=== PATIENT | male | born 1995 | race Caucasian/White ===

== ENCOUNTER 2017-01-11 15:36 | Emergency (ER) | payer SELFPAY ==
[2017-01-11] MEDS ORDERED: Ketorolac 60 MG/2 ML SDV IM ONE (16:03)
--- NOTE | 2017-01-11 16:12 | EDM.PDOC ---
ED HPI GENERAL MEDICAL PROBLEM - General Chief Complaint: Back Pain or Injury Stated Complaint: BACK PAIN Time Seen by Provider: 01/11/17 15:55 Source of Information: Reports: Patient, RN History Limitations: Reports: No Limitations - History of Present Illness INITIAL COMMENTS - FREE TEXT/NARRATIVE: 21 yo male moved here 2 weeks ago from [place] for employment. Has no local doctor. Has a hx of mild, chronic low back pain not felt to be due to a prior injury. Has never been seen for this low back pain. Now since last night his pain has progressed to the point where he called in sick to work today. Is taking ibuprofen without relief. No bowel or bladder dysfunction and no lower extremity weakness or numbness. Onset: Unknown/Unsure Duration: Chronic, Getting Worse Location: Reports: Back (low back) Quality: Reports: Ache Severity: Moderate Improves with: Reports: Rest Worsens with: Reports: Movement Context: Reports: Other (unknown) Associated Symptoms: Reports: No Other Symptoms Treatments LADDER OPERATOR: Reports: NSAIDS Lower Back Pain Score (Numeric/FACES): 4 - Related Data Allergies Allergy/AdvReac Type Severity Reaction Status Date / Time No Known Allergies Allergy Verified 01/11/17 15:52 Home Meds: Home Meds Ibuprofen 200 mg PO ASDIRECTED 01/11/17 [History] Past Medical History Musculoskeletal History: Reports: Back Pain, Chronic Psychiatric History: Reports: Autism, Other (See Below) Other Psychiatric History: asbergers. socialphobia - Infectious Disease History Infectious Disease History: Reports: Chicken Pox - Past Surgical History Other Musculoskeletal Surgeries/Procedures:: tibia fracture Social & Family History - Tobacco Use Smoking Status *Q: Light Tobacco Smoker Years of Tobacco use: 10 Packs/Tins Daily: 0.3 - Caffeine Use Caffeine Use: Reports: Coffee, Energy Drinks, Soda - Recreational Drug Use Recreational Drug Use: No ED ROS GENERAL - Review of Systems Review Of Systems: See Below Constitutional: Reports: No Symptoms HEENT: Reports: No Symptoms Respiratory: Reports: No Symptoms Cardiovascular: Reports: No Symptoms GI/Abdominal: Reports: No Symptoms : Reports: No Symptoms Musculoskeletal: Reports: Back Pain Skin: Reports: No Symptoms Neurological: Reports: No Symptoms ED EXAM,LOWER BACK PAIN/INJURY - Physical Exam Exam: See Below Exam Limited By: No Limitations General Appearance: Alert, WD/WN, No Apparent Distress Eye Exam: Bilateral Eye: Normal Inspection Ears: Normal External Exam, Normal Canal, Hearing Grossly Normal, Normal TMs Nose: Normal Inspection, Normal Mucosa, No Blood Throat/Mouth: Normal Inspection, Normal Lips, Normal Oropharynx, Normal Voice, No Airway Compromise Head: Atraumatic, Normocephalic Neck: Normal Inspection, Supple, Non-Tender Respiratory/Chest: No Respiratory Distress, Lungs Clear, Normal Breath Sounds, No Accessory Muscle Use Cardiovascular: Regular Rate, Rhythm, No Edema GI/Abdominal: Normal Bowel Sounds, Soft, Non-Tender, No Distention Back Exam: Normal Inspection, Decreased Range of Motion, Vertebral Tenderness ( lumbar spine at beltline). No: CVA Tenderness (R), CVA Tenderness (L), Paraspinal Tenderness Extremities: Normal Inspection, Normal Range of Motion, Non-Tender, No Pedal Edema Neurological: Alert, Normal Mood/Affect, CN II-XII Intact, No Motor/Sensory Deficits, Oriented x 3 Psychiatric: Normal Affect, Normal Mood Skin Exam: Warm, Dry, Intact, Normal Color, No Rash Lymphatic: No Adenopathy Course - Vital Signs Last Recorded V/S: Last Vital Signs Temp 36.2 C 01/11/17 15:54 Pulse 64 01/11/17 15:54 Resp 16 01/11/17 15:54 BP 142/71 H 01/11/17 15:54 Pulse Ox 96 01/11/17 15:54 - Orders/Labs/Meds Orders: Active Orders 24 hr Category Date Time Status Lumbar Spine 2 or 3V [CR] Stat Exams 01/11/17 16:02 Ordered Meds: Medications Discontinued Medications Generic Name Dose Route Start Last Admin Trade Name Santi PRN Reason Stop Dose Admin Ketorolac Tromethamine 60 mg 01/11/17 16:03 01/11/17 16:10 Toradol IM 01/11/17 16:04 60 mg ONETIME ONE Administration - Radiology Interpretation Free Text/Narrative:: lumbar spine [id number] Departure - Departure Time of Disposition: 16:45 Disposition: Home, Self-Care 01 Condition: Fair Clinical Impression: Acute exacerbation of chronic low back pain - Discharge Information Referrals: PCP,None [Primary Care Provider] - Forms: ED Department Discharge - My Orders Last 24 Hours: My Active Orders 01/11/17 16:02 Lumbar Spine 2 or 3V [CR] Stat - Assessment/Plan Last 24 Hours: My Active Orders 01/11/17 16:02 Lumbar Spine 2 or 3V [CR] Stat
--- NOTE | 2017-01-12 08:29 | CR ---
Lumbar Spine 2 or 3V INDICATION: pain, no acute injury COMPARISON: None FINDINGS: 3 views. 5 lumbar-type vertebra. No compression deformities or subluxations. No disc space narrowing. IMPRESSION: Negative study.
== END 2017-01-11 16:57 | disposition home or self-care (01) ==
LOC: JP.ED 15:36
DX: M54.5 Low back pain (principal); G89.29 Other chronic pain; F17.210 Nicotine dependence, cigarettes, uncomplicated
CPT/HCPCS: 72100; 96372; 99284; J1885; 99283

== ENCOUNTER 2017-08-27 20:21 | Emergency (ER) | payer SELFPAY ==
[2017-08-27] MEDS ORDERED: Ketorolac 60 MG/2 ML SDV IM ONE (21:08)
--- NOTE | 2017-08-27 21:12 | EDM.PDOC ---
<Gill Coleman N - Last Filed: 08/27/17 21:32> ED HPI GENERAL MEDICAL PROBLEM - General Chief Complaint: General Stated Complaint: TOOTH PAIN Time Seen by Provider: 08/27/17 20:45 - History of Present Illness INITIAL COMMENTS - FREE TEXT/NARRATIVE: Paul is an otherwise healthy 22-year-old male who presents with complaints of dental pain secondary to dental decay of teeth 1 and 17. He states the pain began five days ago, and has progressively worsened. He has been taking BC aspirin powder 845 mg PO about 8 times per day with some relief, although he developed some associated abdominal pain this morning. States that he made a dental appointment, but cancelled it as he does not enjoy going to the dentist. He does not seek regular dental care, and his last appointment was about 5 years ago. Denies dysphagia, fevers, chills, or other associated symptoms. - Related Data Allergies Allergy/AdvReac Type Severity Reaction Status Date / Time No Known Allergies Allergy Verified 08/27/17 20:34 Home Meds: Home Meds Aspirin/Caffeine [Bc Powder Packet] 1 pack PO Q8HR PRN 08/27/17 [History] ED ROS GENERAL - Review of Systems Review Of Systems: See Below Constitutional: Reports: No Symptoms. Denies: Fever, Chills, Malaise, Fatigue, Decreased Appetite HEENT: Reports: Dental Pain. Denies: Throat Pain, Throat Swelling Respiratory: Reports: No Symptoms. Denies: Shortness of Breath Cardiovascular: Reports: No Symptoms. Denies: Chest Pain Endocrine: Reports: No Symptoms GI/Abdominal: Reports: No Symptoms (Transient episode this morning), Abdominal Pain. Denies: Diarrhea, Decreased Appetite, Nausea, Vomiting : Reports: No Symptoms Musculoskeletal: Reports: No Symptoms Skin: Reports: No Symptoms Neurological: Reports: No Symptoms Psychiatric: Reports: No Symptoms Hematologic/Lymphatic: Reports: No Symptoms Immunologic: Reports: No Symptoms ED EXAM, GENERAL - Physical Exam Exam: See Below Free Text/Narrative:: This is a pleasant 22-year-old male who appears to be in obvious discomfort, clutching at both sides of his jaw. He is alert and converses appropriately. Oral examination reveals multiple dental caries and decay in teeth 23-25, with a fracture on tooth 1 and significant decay in tooth 17. No edema, bleeding, or gingivitis observed. No drainage or abscess appreciated. Exam Limited By: No Limitations General Appearance: Alert, WD/WN, Mild Distress Ears: Normal External Exam, Normal Canal, Other (TM obscured by cerumen) Nose: Normal Inspection Throat/Mouth: Normal Lips, Normal Gums, Normal Oropharynx, Normal Voice, No Airway Compromise, Other (Noticeable crack of 1st tooth and significant dental berny and decay on 17th tooth. Dental caries also observed on teeth 23-25.) Head: Atraumatic Neck: Normal Inspection, Supple, Non-Tender. No: Lymphadenopathy (R), Lymphadenopathy (L) Respiratory/Chest: No Respiratory Distress, Lungs Clear, Normal Breath Sounds Cardiovascular: Regular Rate, Rhythm, No Gallop, No Murmur, No Rub GI/Abdominal: Normal Bowel Sounds, Soft, Non-Tender Neurological: Alert, Oriented, Normal Cognition, No Motor/Sensory Deficits Psychiatric: Normal Affect, Normal Mood Skin Exam: Warm, Dry, Intact, Normal Color, No Rash Lymphatic: No Adenopathy Course - Vital Signs Last Recorded V/S: Last Vital Signs Temp 35.6 C 08/27/17 20:35 Pulse 105 H 08/27/17 20:35 Resp 18 08/27/17 20:35 BP 180/93 H 08/27/17 20:35 Pulse Ox 97 08/27/17 20:35 - Orders/Labs/Meds Meds: Medications Discontinued Medications Generic Name Dose Route Start Last Admin Trade Name Santi PRN Reason Stop Dose Admin Clindamycin HCl 300 mg 08/27/17 21:52 08/27/17 22:02 Cleocin PO 08/27/17 21:53 300 mg ONETIME ONE Administration Diphenhydramine HCl 50 mg 08/27/17 21:52 08/27/17 22:00 Benadryl PO 08/27/17 21:53 50 mg ONETIME ONE Administration Ketorolac Tromethamine 60 mg 08/27/17 21:08 08/27/17 21:16 Toradol IM 08/27/17 21:09 60 mg ONETIME ONE Administration Pantoprazole Sodium 40 mg 08/27/17 21:21 08/27/17 21:30 Protonix PO 08/27/17 21:22 40 mg DAILY ONE Administration Departure - Departure Disposition: Home, Self-Care 01 Clinical Impression: Dental abscess, Dental caries extending into dentin - Discharge Information Instructions: Dental Abscess Referrals: PCP,None [Primary Care Provider] - Forms: ED Department Discharge Additional Instructions: You have been evaluated and treated for dental abscess. You were given toradol 60mg IM and protonix by mouth for your pain and stomach acid. Take clindamycin 300mg by mouth four times a day for infection (this would be 2 pills, four times a day). Ibuprofen 800mg by mouth three times a day for pain as needed. You can also take acetaminophen 1000mg by mouth three times a day as needed for pain. Take omeprazole 20mg by mouth twice per day for stomach acid build up and protection with fpc use of NSAIDs. Stop use of asa as this can cause significant irritation to your stomach. You can use ice to your face for pain. Follow up with Dental for further care. Return for worsening, issues or concerns. <Amena Levy - Last Filed: 08/27/17 22:45> ED HPI GENERAL MEDICAL PROBLEM - General Source of Information: Reports: Patient, Family History Limitations: Reports: No Limitations Tooth/Teeth Pain Score (Numeric/FACES): 5 Past Medical History Musculoskeletal History: Reports: Back Pain, Chronic Psychiatric History: Reports: Autism, Other (See Below) Other Psychiatric History: asbergers. socialphobia - Infectious Disease History Infectious Disease History: Reports: Chicken Pox - Past Surgical History Other Musculoskeletal Surgeries/Procedures:: tibia fracture Social & Family History - Family History Family Medical History: Noncontributory - Tobacco Use Smoking Status *Q: Current Every Day Smoker Years of Tobacco use: 3 Packs/Tins Daily: 0.2 - Caffeine Use Caffeine Use: Reports: None - Recreational Drug Use Recreational Drug Use: Yes Recreational Drug Type: Reports: Marijuana/Hashish Recreational Drug Use Frequency: Socially Departure - Departure Time of Disposition: 21:33 Condition: Good - Discharge Information *PRESCRIPTION DRUG MONITORING PROGRAM REVIEWED*: Yes *COPY OF PRESCRIPTION DRUG MONITORING REPORT IN PATIENT YANIRA: Not Applicable - Assessment/Plan Plan: Patient evaluated and treated for dental abscess. He given toradol 60mg IM and protonix by mouth for your pain and stomach acid as well as first dose of clindamycin 300mg PO and benadryl to help him rest tonight. Take clindamycin 300mg by mouth four times a day for infection (this would be 2 pills, four times a day). Ibuprofen 800mg by mouth three times a day for pain as needed. He can also take acetaminophen 1000mg by mouth three times a day as needed for pain. Take omeprazole 20mg by mouth twice per day for stomach acid build up and protection with intermediate project manager use of NSAIDs. Stop use of asa as this can cause significant irritation to the stomach. He can use ice to your face for pain. Follow up with Dental for further care, dental referral placed for September 19 per his request. Return for worsening, issues or concerns.
[2017-08-27] MEDS ORDERED: Pantoprazole 40 MG Tab.CR PO ONE (21:21)
[2017-08-27] MEDS ORDERED: Clindamycin HCl 150 MG Cap PO ONE (21:52)
[2017-08-27] MEDS ORDERED: diphenhydrAMINE 25 MG Cap PO ONE (21:52)
== END 2017-08-27 22:10 | disposition home or self-care (01) ==
LOC: JP.ED 20:21
DX: K04.7 Periapical abscess without sinus (principal); K03.81 Cracked tooth; K02.9 Dental caries, unspecified
CPT/HCPCS: 96372; 99283; A9270; J1885